=== PATIENT | male | born 1955 | race Caucasian/White ===

== ENCOUNTER 2016-10-18 10:48 | Emergency (ER) | payer MEDICARE ==
[2016-10-18 11:30] VITALS: BP 184/93
--- NOTE | 2016-10-18 11:56 | UC ---
Lower Extremity/Ankle HPI - HPI Summary HPI Summary: Noticed pain and swelling on L lateral foot today while changing socks. Has open area to L sole of foot, also redness on top of foot. Has hx of DM II ("I'm not diabetic anymore now that I'm not taking a statin"), peripheral neuropathy, and PAD. Has not seen PCP in over a year because he felt he was being given too much/harmful medicine. Denies fever. - History of Current Complaint Chief Complaint: UCSkin Stated Complaint: FOOT INJURY Time Seen by Provider: 10/18/16 11:29 Hx Obtained From: Patient Onset/Duration: Gradual Onset Severity Currently: Moderate Aggravating Factor(s): Standing, Ambulation Able to Bear Weight: Yes - Allergies/Home Medications Allergies/Adverse Reactions: Allergies Allergy/AdvReac Type Severity Reaction Status Date / Time Atorvastatin [From Lipitor] Allergy Unknown Verified 06/09/15 11:37 Reaction Details Statins Allergy "PERIPHERAL Verified 06/09/15 11:37 ARTERY DISEASE" Home Medications: Home Medications Alpha-Lipoic Acid (Thioctic AC [Alpha Lipoic Acid] 600 mg PO DAILY 10/18/16 [ History Confirmed 10/18/16] Misc Natural Products [Colon Cleanse] 1 cap PO DAILY 10/18/16 [History Confirmed 10/18/16] Vitamin B Complex CAP* [B Complex CAP*] 1 cap PO DAILY 10/18/16 [History Confirmed 10/18/16] PMH/Surg Hx/FS Hx/Imm Hx Endocrine History Of: Reports: Diabetes Denies: Thyroid Disease Cardiovascular History Of: Reports: Cardiac Disorders - periperal artery disease , enlarged heart, Hypertension, Atrial Fibrillation Respiratory History Of: Denies: COPD, Asthma GI/ History Of: Comment Only: Ulcer - presents with foot ulcer today - Surgical History Surgical History: Yes Surgery Procedure, Year, and Place: back surgery - Family History Known Family History: Positive: Hypertension - Social History Occupation: Retired Alcohol Use: None Substance Use Type: None Smoking Status (MU): Never Smoked Tobacco Review of Systems Constitutional: Negative Skin: Other - redness, ulcer to L foot Eyes: Negative ENT: Negative Respiratory: Negative Cardiovascular: Negative Gastrointestinal: Negative Genitourinary: Negative Motor: Negative Neurovascular: Negative Musculoskeletal: Negative Neurological: Negative Psychological: Negative All Other Systems Reviewed And Are Negative: Yes Physical Exam Triage Information Reviewed: Yes Appearance: Well-Appearing, Well-Nourished Vital Signs: Initial Vital Signs Temp 98.8 F 10/18/16 11:18 Pulse 63 10/18/16 11:18 Resp 18 10/18/16 11:18 BP 184/93 10/18/16 11:18 Pulse Ox 98 10/18/16 11:18 Vital Signs Reviewed: Yes Eye Exam: Normal Eyes: Positive: Conjunctiva Clear ENT Exam: Normal ENT: Positive: Normal ENT inspection, Hearing grossly normal, Pharynx normal, TMs normal Dental Exam: Normal Neck exam: Normal Neck: Positive: Supple, Nontender, No Lymphadenopathy Respiratory Exam: Normal Respiratory: Positive: Chest non-tender, Lungs clear, Normal breath sounds, No respiratory distress, No accessory muscle use Cardiovascular Exam: Normal Cardiovascular: Positive: RRR, No Murmur Musculoskeletal Exam: Normal Musculoskeletal: Positive: Strength Intact, ROM Intact Neurological Exam: Normal Neurological: Positive: Alert Psychological Exam: Normal Skin Exam: Other - 13cm x 6cm erythema L foot, 1cm round 0.5cm deep ulcer on L lateral sole of foot Lower Extremity Course/Dx - Differential Dx/Diagnosis Provider Diagnoses: L foot cellulitis. L foot ulcer. peripheral neuropathy Discharge - Discharge Plan Condition: Stable Disposition: HOME Prescriptions: DOXYcycline CAP(*) [DOXYcycline 100MG CAP(*)] 100 mg PO BID #20 cap Patient Education Materials: Diabetic Foot Ulcers (ED), Cellulitis (ED) Referrals: Julita Fam MD [Medical Doctor] - 2 Days Additional Instructions: Elevate the foot above the level of the heart as much as possible in the next 48 hours. Do warm soaks 4 times per day with epsom salts or soapy water. Please call Marla to make an appointment with any of the providers by Sunday, if possible. It will also be important for you to be evaluated at the wound clinic at [facility]. Please call them today: [phone]
== END 2016-10-18 12:01 | disposition home or self-care (01) ==
LOC: UCEAST 10:48
DX: L03.116 Cellulitis of left lower limb (principal); E11.621 Type 2 diabetes mellitus with foot ulcer; L97.429 Non-pressure chronic ulcer of left heel and midfoot with unspecified severity; E11.42 Type 2 diabetes mellitus with diabetic polyneuropathy; I10 Essential (primary) hypertension; I48.91 Unspecified atrial fibrillation
CPT/HCPCS: 99212; G0463

== ENCOUNTER 2017-12-21 13:44 | Inpatient (IN) | payer MEDICARE ==
[2017-12-21 14:23] LABS: ABS Basophils 0 10^3/ul (0-0.2); ABS Eosinophils 0.1 10^3/ul (0-0.6); ABS Lymphocytes 2.8 10^3/ul (1.0-4.8); ABS Monocytes 0.9 10^3/ul (0-0.8); ABS Neutrophils 3.6 10^3/ul (1.5-7.7); ABS Nucleated RBC 0 10^3/ul; Eosinophil % 1.5 % (0-6); Hematocrit 40 % (42-52); Hemoglobin 13.2 g/dl (14.0-18.0); Lymphocyte % 37.5 % (25-47); Mean Corpuscular HGB Conc 33 g/dl (31-36); Mean Corpuscular Hemoglobin 28 pg (27-31); Mean Corpuscular Volume 86 fL (80-94); Mean Platelet Volume 10.1 um3 (7.4-10.4); Nucleated Red Blood Cells % 0.1; Platelet Count 189 10^3/ul (150-450); Red Blood Count 4.67 10^6/ul (4.00-5.40); Red Cell Distribution Width 14 % (10.5-15); White Blood Count 7.4 10^3/ul (3.5-10.8)
[2017-12-21 14:37] LABS: EGFR Non-African American 102.7 (>60)
[2017-12-21] MEDS ORDERED: Metoprolol Tartrate TAB* 25 MG PO ONE (14:57)
[2017-12-21] MEDS ORDERED: Aspirin 81 mg CHEW TAB* 81 MG TAB.CHEW PO ONE (14:57)
[2017-12-21] MEDS ORDERED: Ondansetron ODT TAB* 4 MG PO ONE (14:58)
[2017-12-21] MEDS ORDERED: Nitroglycerin 2% OINT* 1 GM PAK TOPICAL ONE (14:58)
[2017-12-21] MEDS ORDERED: Furosemide IV* 10 MG/ML VIAL (40 MG) IV ONE (15:02)
--- NOTE | 2017-12-21 15:12 | RAD ---
HISTORY: SOB COMPARISONS: February 03, 2014 VIEWS: 1: frontal portable view of the chest at 2:50 PM FINDINGS: LINES AND TUBES: None. CARDIOMEDIASTINAL SILHOUETTE: The cardiomediastinal silhouette is normal for portable technique. PLEURA: There is a small right pleural effusion. LUNG PARENCHYMA: There is confluent alveolar opacification of the right lung base. ABDOMEN: The upper abdomen is clear. There is no subphrenic gas. BONES AND SOFT TISSUES: No bone or soft tissue abnormalities are noted. IMPRESSION: RIGHT LOWER LUNG CONSOLIDATION WITH SMALL RIGHT PLEURAL EFFUSION. RECOMMEND FOLLOW-UP UNTIL RESOLUTION TO EXCLUDE UNDERLYING PULMONARY PARENCHYMAL PATHOLOGY.
[2017-12-21] MEDS ORDERED: nitroGLYCERIN DRIP* 25,000 MCG/250 ML BTL IV ONE (15:44)
[2017-12-21] MEDS: Heparin DRIP 25,000 UNITS(*) 25,000 UNITS/500 ML BAG IV SCH (15:57)
[2017-12-21] MEDS ORDERED: Heparin VIAL(*) 5000 UNITS/ML VIAL (FIVE THOUSAND) IV SCH (16:00)
[2017-12-21] MEDS ORDERED: Acetaminophen TAB* 325 MG PO PRN (16:04)
[2017-12-21] MEDS ORDERED: PROCHLORPERAZINE INJ 5 MG/ML 2 ML VIAL IV PRN (16:04)
[2017-12-21 18:21] LABS: INR 1.37 (0.77-1.02)
[2017-12-21] MEDS: cefTRIAXone(*) 1 GM in NS 0.9% 50 ML* 50 ML IVPB SCH (19:00)
[2017-12-21] MEDS: DOXYcycline IV* 100 MG in NS 0.9% 250 ML* 250 ML IVPB SCH (19:27)
--- NOTE | 2017-12-21 20:43 | CONS ---
CC: Dr. Chaudhry, hospitalist service; Dr. Williamson CARDIOLOGY CONSULT: DATE OF CONSULT: 12/21/17 HISTORY OF PRESENT ILLNESS: I was asked by hospitalist service ER physician to see this 62-year-old patient who has no primary care physician and noncompliant , presented to the emergency room for progressive symptoms of shortness of breath for a few weeks and months. Apparently, the patient went to the [facility], was told to come to our emergency room. The patient has history of diabetes; history of smoking, although he quit; history of systemic arterial hypertension, not on medications; history of chronic AFib and when presented, he was found to be on physical exam, x-ray, BNP in congestive heart failure. He gives no symptoms of chest pain, although in the past he said there is some pressure in his chest. He was found to have BNP close to 2000, troponin 4. He is in AFib, which is not new and no definite ST elevation by his EKG. He has been receiving in the emergency room aspirin, Lasix 40 mg IV which I increased to 60 mg 1 dose for now and Lopressor 25 mg 1 dose, heparin drip as per protocol and nitro drip as his blood pressure was significantly elevated in the emergency room at 170/105. He gives no active chest pain at the moment. No fever. No chills. No skin rash. No tremors. No hematochezia. No nausea. No vomiting. He said he has been having progressive shortness of breath. He gained weight 20 pounds in a year, swelling of the lower extremities. He gives no history of myocardial infarction. He is not on any medications as an outpatient except baby aspirin. He is on disability because of chronic back pain issues and surgeries. He said he used to smoke, He quit many years ago. In the emergency room, he is awake, alert, and oriented. He has no symptoms of chest pain. He is mildly tachypneic, sitting up at 45 degrees. PAST MEDICAL HISTORY: As outlined above. PAST SURGICAL HISTORY: Multiple surgeries according to the patient to his back. ALLERGIES: He said he had allergies to STATINS as giving him significantly elevated triglycerides according to the patient. FAMILY HISTORY: No family history of premature coronary artery disease. SOCIAL HISTORY: He is on disability. He used to smoke. He gives no history of drinking. No history of illicit drug use. PHYSICAL EXAM: He is awake, alert, and oriented. He had no chest pain. He had some shortness of breath, tachypneic. Vitals: Blood pressure is 170/100. He is afebrile. Heart rate 110. He is in AFib which is not new. Head: Normocephalic/atraumatic head. JVP is elevated at 45 degrees, 5 cm. Neck is supple. No carotid bruits. Chest: Diminished air entry and rales up to the mid lungs bilaterally. Heart: Tachycardic, irregularly irregular, S1, S2. Soft S3 appreciated. Abdomen: Soft, lax. No guarding. No rigidity. No organomegaly. Extremities: +3 pitting edema up to the knees. GRINDER OPERATOR TOOL: No focal deficits. Skin exam is normal. Psych: Normal affect and mood. DIAGNOSTIC STUDIES/LAB DATA: Chest x-ray was reported to have right lower lung consolidation, small right pleural effusion. His labs showed white blood cells 7.4, hemoglobin 13.2, hematocrit 40, and platelets 189,000. Chemistry: Sodium 141, potassium 4.2, BUN 8, creatinine 0.77, sugar 126. AST 49, ALT 33. Troponin 4.87. BNP 1758. Albumin and globulin are normal. His EKG showed him to be in atrial fibrillation, heart rate about 106, nonspecific ST-T changes, no definite ST elevations appreciated, nonspecific T wave abnormality. IMPRESSION: The patient is a 62-year-old, noncompliant, does not follow up with primary care or specialist according to the patient who presented with: 1. Progressive symptoms of shortness of breath with swelling of the lower extremities, all consistent with congestive heart failure. 2. Significantly elevated blood pressure with known history of systemic arterial hypertension, not on medications. 3. History of tobacco consumption. 4. Hyperlipidemia. 5. History of diabetes. 6. Chronic atrial fibrillation, not on medications as an outpatient. PLAN: The patient had initially limited echo in the emergency room that showed the overall left ventricular systolic function with an EF globally about 20% to 25%. In some of the views, there is some regional wall motion, probably minor variation, probably anterior apical septal wall hypokinesis of unknown duration. My belief is his congestive heart failure is acute on chronic. He is noncompliant. That could be multifactorial in nature including his history of atrial fibrillation with tachycardia-induced cardiomyopathy, hypertensive heart disease and definitely coronary artery disease or ischemic heart disease cannot be excluded given his risk factors and comorbidities. A full echocardiogram is in progress at the present time. From the limited echo, probably there is mild to moderate tricuspid insufficiency, mild mitral insufficiency, probably trivial pericardial effusion and no significant aortic insufficiency or stenosis appreciated. At the present time, treatment will be for congestive heart failure. I agree with the Lasix, IV heparin, low-dose KRISTEL inhibitor as tolerated, and also Aldactone and I agree with statin needs to be discussed with the patient given that he does not want to take them and he indicated that he had allergies in the form of increasing triglycerides. This needs to be discussed further. Daily weights, I's and O's, IV nitro that will be of help for his hypertensive heart disease as well as for his acute congestive heart failure. Once the patient is more stabilized from his acute systolic congestive heart failure, cardiac catheterization to evaluate his coronary anatomy will be discussed. Definitely, if he becomes more hemodynamically unstable or serial EKGs starting to show significant ST elevations or serial troponins showing significantly elevated numbers, then cardiac catheterization might be done sooner rather than later. Any further recommendations will be pending his clinical outcome and it is so important for this patient to be compliant with his future medical followups as well as with his cardiac medications. Also low-dose KRISTEL inhibitors, low-dose beta-blockers and monitoring him very closely for hemodynamics and vital signs as well. This was all discussed with the patient at length. I have discussed this as well with hospitalist service, Dr. Chaudhry, more than half of at least 65 plus minutes was [id number] in education and counseling mode explaining all of the above, answering his concerns and questions and making further recommendations accordingly. [id number]/[facility] #: [id number] [facility] PARTNERSRoque
[2017-12-21] MEDS ORDERED: Lisinopril TAB* 5 MG PO SCH (21:00)
--- NOTE | 2017-12-21 21:00 | HP ---
CC: Dr. Williamson HISTORY AND PHYSICAL: DATE OF ADMISSION: 12/21/17 TIME OF EVALUATION: 3:30 p.m. CONSULTING PRESIDENT + PUBLISHER: Dr. Williamson. CHIEF COMPLAINT: Shortness of breath. HISTORY OF PRESENT ILLNESS: Mr. Persaud is a 62-year-old male with a past medical history of hy pertension, hyperlipidemia, atrial fibrillation, noncompliance, who last saw a physician 2 years ago. He states that since July he has had progressive dyspnea initially with exertion but progressiv e to the point now he is dyspneic at rest. He developed orthopnea, PND, has gained 20 pounds over past couple of months, and describes severe bilateral lower extremity edema for the past couple of weeks. He states that in October he had cold "that I cannot shake out." He states that he has been taking cough drops frequently. He denies chest pain, but has had palpitations on and off for 6 months. He states that he was diagno sed with atrial fibrillation a couple of years ago and that he had irregular heart beat, but by the e he came to the emergency room, it had already resolved. He has had on and off brief episodes sin ce then, but has never been on anticoagulation. He states that for the past 6 months, the episodes h ave been more frequent and he thinks that at least for the past couple of weeks, he has been in atria l fibrillation nonstop. He denies fever, chills, nausea, vomiting, urinary or bowel complaints. PAST MEDICAL HISTORY: 1. Hypertension. 2. Hyperlipidemia. 3. Atrial fibrillation. 4. Noncompliance. MEDICATIONS: Aspirin 81 mg p.o. daily. ALLERGIES: With ATORVASTATIN, the patient experienced muscle aches. FAMILY HISTORY: Father had a history of heart disease. Brother of unknown type of cancer. His mother is 100 and still alive. She lives in a prison in [place]. SOCIAL HISTORY: He states that he smoked a pack and a half a day and quit 9 years ago. No history o f alcohol or drug use. The patient has no surrogate decision maker at this time. REVIEW OF SYSTEMS: A 14-point review of systems was performed and all the pertinent negative and pos itive findings are in the HPI. PHYSICAL EXAMINATION GENERAL: The patient is a pleasant gentleman, sitting up in the ED stretcher, in no acute distress. VITAL SIGNS: Temperature 98.1, heart rate 120, respiratory rate 27, oxygen saturation 96% on 2 L celena al cannula, blood pressure 170/99. HEENT: Pupils are equal. Moist mucous membranes. There is JVD 5 cm with the patient sitting at alda ost 90 degrees. CHEST: Breath sounds present bilaterally with bilateral crackles. CVS: Normal S1, S2. Regular rate and rhythm. ABDOMEN: Obese, soft. Bowel sounds are present. EXTREMITIES: There is 3+ pitting lower extremity edema. NEURO: He is alert and oriented x3. Able to move all 4 extremities. LABORATORY AND IMAGING DATA: The patient had a CBC that showed WBC of 7.4, hemoglobin of 13.2, pepe tocrit of 40, platelets of 189,000 with 48% neutrophils. Chemistry showed sodium of 141, potassium 4. 2, chloride of 106, bicarb of 25, BUN 8, creatinine of 0.77, glucose of 106. Lactic acid of 1.8. Ca lcium 9.1. LFTs showed a total bilirubin of 1.4, AST of 49, ALT of 33, alk phos of 171. BNP is 170 0. First troponin was 4.8. Chest x-ray showed a right lower lung consolidation with small right pleural effusion. EKG done on 12/21/17 at 1425 showed atrial fibrillation with heart rate of 106 beats per minute with signs of LVH, prolonged QT. Those findings are new when compared to his prior EKG from May 2015 except for the prolonged QT interval that was already present at that time. ASSESSMENT AND PLAN: Mr. Persaud is a 62-year-old male with a past medical history of hypertens ion, hyperlipidemia, atrial fibrillation, prior tobacco abuse, noncompliance [facility] of progressive dyspnea, at first on exertion, now at rest; orthopnea; PND; we ight gain; lower extremity edema, representation compatible with acute congestive heart failure exace rbation. 1. Acute systolic congestive heart failure exacerbation. The patient's echo preliminary report sugg ests an ejection fraction of 25%. The patient's heart disease is decompensated at this time and he will be admitted to the intensive ca re unit for further stabilization. For now, he will be diuresed with furosemide. We are going to use a nitro drip to control his blood pressure. Monitor I's and O's and daily weights. We will start low dose beta-joey, low dose KRISTEL inhibitor, and eventually will add Aldactone to his regimen. 2. Non-ST elevation myocardial infarction. The patient does have risk factors for coronary artery disease considering his prior history of tobac co abuse, hypertension, hyperlipidemia. He has no complaints of chest pain. There are no ST elevati ons on his EKG and he is chest pain free. First troponin was 4.8 and we are going to trend until peak . He will be continued on aspirin. He will be on a heparin drip and also low dose beta-joey. We ar e going to check a lipid profile before starting a statin as the patient had muscle aches with it in the past. 3. Atrial fibrillation with rapid ventricular rate. Likely uncontrolled now due to his congestive heart failure and probably a snowball effect with the c ongestive heart failure feeding the atrial fibrillation and the atrial fibrillation feeding the conge stive heart failure. For now, he is going to be diuresed and we are going to give him metoprolol and monitor his heart rate. He is already on anticoagulation with heparin and we may need to add furthe r negative annual troponins depending on his response. 4. Sepsis. The patient does meet SIRS criteria with tachycardia and tachypnea and he appears to hav e a right lower lobe infiltrate in the setting of a recent upper respiratory infection in October. Altho ugh I believe that his tachycardia and tachypnea are not related to infection and are in fact related to his heart disease. The patient will be started on ceftriaxone and doxycycline. IV hydration is contraindicated at this time as the patient is already severely fluid overloaded. His lactic acid was 1.8, and as I stated be fore, I do not believe his tachypnea and tachycardia are secondary to pneumonia, but are secondary to his heart disease. We will check Legionella and pneumococcal antigens. 5. Community-acquired pneumonia. As above. 6. Hyperglycemia. We will check hemoglobin A1c. 7. Transaminitis. Likely secondary to liver congestion in the setting of decompensated congestive heart failure. 8. DVT prophylaxis. The patient has a score of 4 on the DVT Prophylaxis Risk Assessment Guide and h e is on a heparin drip. 9. Code status is full. TIME SPENT: Approximately 65 minutes of critical care time was spent to complete the admission. [id number]/[facility] #: [id number]
[2017-12-21] MEDS: Metoprolol Tartrate TAB* 25 MG PO SCH (21:19)
[2017-12-21] MEDS: Heparin VIAL(*) 5000 UNITS/ML VIAL (FIVE THOUSAND) ONE (22:39)
[2017-12-22 04:25] LABS: ABS Basophils 0 10^3/ul (0-0.2); ABS Eosinophils 0.1 10^3/ul (0-0.6); ABS Lymphocytes 3.2 10^3/ul (1.0-4.8); ABS Monocytes 0.9 10^3/ul (0-0.8); ABS Neutrophils 4.9 10^3/ul (1.5-7.7); ABS Nucleated RBC 0 10^3/ul; Eosinophil % 1.3 % (0-6); Hematocrit 38 % (42-52); Hemoglobin 12.6 g/dl (14.0-18.0); Lymphocyte % 34.9 % (25-47); Mean Corpuscular HGB Conc 33 g/dl (31-36); Mean Corpuscular Hemoglobin 28 pg (27-31); Mean Corpuscular Volume 86 fL (80-94); Mean Platelet Volume 9.8 um3 (7.4-10.4); Nucleated Red Blood Cells % 0.1; Platelet Count 175 10^3/ul (150-450); Red Blood Count 4.46 10^6/ul (4.00-5.40); Red Cell Distribution Width 14 % (10.5-15); White Blood Count 9.2 10^3/ul (3.5-10.8)
[2017-12-22 04:41] LABS: EGFR Non-African American 95.5 (>60)
[2017-12-22] MEDS: DOXYcycline IV* 100 MG in NS 0.9% 250 ML* 250 ML IVPB SCH ×2 (05:47→17:57)
[2017-12-22] MEDS: Metoprolol Tartrate TAB* 25 MG PO SCH ×2 (09:12→20:53)
[2017-12-22] MEDS: Aspirin EC TAB* 81 MG TAB.EC PO SCH (09:12)
[2017-12-22] MEDS: Furosemide IV* 10 MG/ML VIAL (40 MG) IV SLOW PU SCH (09:12)
--- NOTE | 2017-12-22 10:16 | PN ---
Subjective Date of Service: 12/22/17 - CC: leg swelling and orthopnea Interval History: The patient states his leg swelling, abdominal distension and breathing have improved c/w admission. The patient states he will now follow up with physicians. Medications Active Medications: Acetaminophen (Tylenol Tab*) 650 mg PO Q6H PRN PRN Reason: pain/fever Aspirin (Aspirin Ec Tab*) 81 mg PO DAILY [facility] Last Admin: 12/22/17 09:12 Dose: 81 mg Furosemide (Lasix Iv*) 40 mg IV SLOW PU DAILY [facility] Last Admin: 12/22/17 09:12 Dose: 40 mg Heparin Sodium (Porcine) (Heparin Vial(*)) 4,000 units IV ED ONCE [facility] Last Admin: 12/21/17 15:55 Dose: 4,000 units Heparin Sodium/Dextrose (Heparin Drip 25,000 Units(*)) 25,000 units in 500 mls @ 0 mls/hr IV PER RATE [facility]; Protocol Last Admin: 12/21/17 15:57 Dose: 20 mls/hr Nitroglycerin/Dextrose (Nitroglycerin Drip*) 25,000 mcg in 250 mls @ 6 mls/hr IV ED ONCE ONE Stop: 12/23/17 09:23 Last Admin: 12/21/17 16:05 Dose: 6 mls/hr Doxycycline Hyclate 100 mg/ (Sodium Chloride) 250 mls @ 250 mls/hr IVPB Q12H [facility] Last Admin: 12/22/17 05:47 Dose: 250 mls/hr Ceftriaxone Sodium 1 gm/ (Sodium Chloride) 50 mls @ 200 mls/hr IVPB Q24H [facility] Last Admin: 12/21/17 19:00 Dose: 200 mls/hr Lisinopril (Prinivil Tab*) 2.5 mg PO BEDTIME [facility] Last Admin: 12/21/17 21:18 Dose: 2.5 mg Metoprolol Tartrate (Lopressor Tab*) 12.5 mg PO Q12HR [facility] Last Admin: 12/22/17 09:12 Dose: 12.5 mg Prochlorperazine Edisylate (Compazine Inj*) 5 mg IV Q6H PRN PRN Reason: NAUSEA/VOMITING Objective Vital Signs: Temp Pulse Resp BP Pulse Ox 98.8 F 87 27 144/86 94 12/22/17 07:00 12/22/17 06:00 07/07/18 06:00 12/22/17 06:00 12/22/17 06:00 Intake and Output Last 24 Hours 12/20/17 12/21/17 12/22/17 12/23/17 04:59 04:59 04:59 04:59 Intake Total 1211.6 420.4 Output Total 1950 675 Balance -738.4 -254.6 Weight 220 lb 7.396 oz Intake: IV Fluids 24 61 NS (0.9%) 24 61 IVPB 250 17 NS (0.9%) 250 17 Medicated IV 127.6 222.4 CC - Nitroglycerine/ 29.6 45.4 Tridil Heparin 98 177 Oral 810 120 Output: Urine 1950 675 Oxygen Devices in Use Now: Nasal Cannula Appearance: seated in Gerichair, 50 degrees, comfortable sitting, tachypnea with talking. Eyes: No Scleral Icterus, PERRLA Ears/Nose/Mouth/Throat: Clear Oropharnyx Neck: No Thyroid Enlargement, Masses Respiratory: Symmetrical Chest Expansion and Respiratory Effort - diminished bs bases bilatlerlly Cardiovascular: NL Sounds; No Murmurs; No JVD - irregular. Abdominal: - - distended, non tender, normal bowel sounds, soft. Lymphatic: No Cervical Adenopathy Extremities: No Clubbing, Cyanosis - mild to moderate edema lower extremities to knees. Neurological: Alert and Oriented x 3 Lines/Tubes/Other Access: Clean, Dry and Intact Peripheral IV Nutrition: Taking PO's Laboratory Results: 12/22/17 04:12 12/22/17 04:12 INR (Anticoag Therapy) 1.37 (0.77-1.02) H 12/21/17 18:05 APTT 51.5 seconds (26.0-36.3) H 12/22/17 04:12 Total Bilirubin 1.40 mg/dL (0.2-1.0) H 12/21/17 14:07 AST 49 U/L (13-39) H 12/21/17 14:07 ALT 33 U/L (7-52) 12/21/17 14:07 Alkaline Phosphatase 171 U/L (34-104) H 12/21/17 14:07 B-Natriuretic Peptide 1758 pg/mL (-100) H 12/21/17 14:08 Total Protein 6.1 g/dL (6.4-8.9) L 12/21/17 14:07 Albumin 3.6 g/dL (3.2-5.2) 12/21/17 14:07 Globulin 2.5 g/dL (2-4) 12/21/17 14:07 Albumin/Globulin Ratio 1.4 (1-3) 12/21/17 14:07 Triglycerides 58 mg/dL 12/22/17 04:12 Cholesterol 89 mg/dL 12/22/17 04:12 LDL Cholesterol 54 mg/dL 12/22/17 04:12 HDL Cholesterol 23.7 mg/dL 12/22/17 04:12 12/21/17 12/21/17 12/21/17 14:07 18:05 21:53 Troponin I 4.87 H* 4.94 H* 4.77 H* 12/22/17 04:12 Troponin I 3.98 H* Diagnostic Imaging: ECHO 12/21/17: LVEF 20-25%, RV moderate hypokinesis, mild to moderate MR and TR, PApr 54 mmHg. CXR 12/21/17: RLL consolidation and effusion. EKG Data: Afib, rate approx. 100 bpm Assessment/Plan 62 yo admitted with months of progressive orthopnea, SMITH, LE edema found in afib of uncertain duration, severe CM, elevated PApressure and troponins elevated, but fairly even. CHF and volume overload: Continue with lasix IV daily. I recommend adding aldactone 25 mg daily. CM: Continue ACEI and Beta joey. I would increase diuresis now, but advance ACEI and BB as BP allows, doses very low now. longterm need to evaluate for improvement of EF, if none VT risk will need to be addressed. Troponin elevation: Could represent CAD, recent but not acute NV or be due to CHF/AFib. Agree needs cath, but too volume overloaded now. AFIB: Continue heparin gtt/anticoagulation that can be stopped for cath. Continue metoprolol for rate control. Atria are very large making successful and durable cardioversion less likely , no cardioversion planned immanently. longterm a trial of GAIL guided CV with aggressive antiarrhythmic might still be worth a try as AV sequential rhythm could help with his CM/CHF and/or referral to EP for consultation (?ablation candidate).
[2017-12-22] MEDS ORDERED: Furosemide IV* 10 MG/ML 2 ML VIAL (20 MG) IV SLOW PU ONE (13:29)
[2017-12-22] MEDS ORDERED: Potassium Chlor TAB* 20 MEQ TAB.ER PO ONE ×2 (13:29→18:13)
--- NOTE | 2017-12-22 14:02 | PN ---
Subjective Date of Service: 12/22/17 Interval History: HOSPITALIST PROGRESS NOTE Patient seen and examined at bedside. Care reviewed and d/w Deirdre Hernandez RN. He feels better today. States his breathing is easier, but feels his edema is unchanged. Denies CP or palpitations, although he's in Afib. States in the past he was aware he was in Afib, but not anymore. Family History: Unchanged from Admission Social History: Unchanged from Admission Past Medical History: Unchanged from Admission Objective Active Medications: Acetaminophen (Tylenol Tab*) 650 mg PO Q6H PRN PRN Reason: pain/fever Aspirin (Aspirin Ec Tab*) 81 mg PO DAILY [facility] Last Admin: 12/22/17 09:12 Dose: 81 mg Furosemide (Lasix Iv*) 40 mg IV SLOW PU DAILY [facility] Last Admin: 12/22/17 09:12 Dose: 40 mg Heparin Sodium (Porcine) (Heparin Vial(*)) 4,000 units IV ED ONCE [facility] Last Admin: 12/21/17 15:55 Dose: 4,000 units Heparin Sodium/Dextrose (Heparin Drip 25,000 Units(*)) 25,000 units in 500 mls @ 0 mls/hr IV PER RATE [facility]; Protocol Last Admin: 12/21/17 15:57 Dose: 20 mls/hr Doxycycline Hyclate 100 mg/ (Sodium Chloride) 250 mls @ 250 mls/hr IVPB Q12H [facility] Last Admin: 12/22/17 05:47 Dose: 250 mls/hr Ceftriaxone Sodium 1 gm/ (Sodium Chloride) 50 mls @ 200 mls/hr IVPB Q24H [facility] Last Admin: 12/21/17 19:00 Dose: 200 mls/hr Lisinopril (Prinivil Tab*) 2.5 mg PO BEDTIME [facility] Last Admin: 12/21/17 21:18 Dose: 2.5 mg Metoprolol Tartrate (Lopressor Tab*) 12.5 mg PO Q12HR [facility] Last Admin: 12/22/17 09:12 Dose: 12.5 mg Prochlorperazine Edisylate (Compazine Inj*) 5 mg IV Q6H PRN PRN Reason: NAUSEA/VOMITING Spironolactone (Aldactone Tab*) 25 mg PO DAILY@1700 [facility] Vital Signs - 8 hr 12/22/17 12/22/1718 06:00 07:00 07:01 Temperature 98.8 F Pulse Rate 87 89 102 Respiratory 27 21 22 Rate Blood Pressure 144/86 135/61 (mmHg) O2 Sat by Pulse 94 91 Oximetry 12/22/17 12/22/17 12/22/17 08:00 09:00 09:01 Temperature Pulse Rate 104 96 105 Respiratory 20 23 21 Rate Blood Pressure 113/69 112/80 (mmHg) O2 Sat by Pulse 92 92 92 Oximetry 12/22/17 12/22/17 12/22/17 10:00 10:08 11:00 Temperature Pulse Rate 110 99 92 Respiratory 31 27 32 Rate Blood Pressure 111/65 (mmHg) O2 Sat by Pulse 89 92 Oximetry 12/22/17 12/22/17 12/22/17 11:01 12:00 13:00 Temperature Pulse Rate 86 87 Respiratory 29 26 22 Rate Blood Pressure 123/73 119/79 134/79 (mmHg) O2 Sat by Pulse 91 92 Oximetry Oxygen Devices in Use Now: None Appearance: Pleasant gentleman lying in recliner in NAD. Eyes: No Scleral Icterus Ears/Nose/Mouth/Throat: Mucous Membranes Moist Neck: Trachea Midline Respiratory: Symmetrical Chest Expansion and Respiratory Effort, - - BS+ bilaterally with bibasilar crackles Cardiovascular: - - Normal S1 and S2 Abdominal: NL Sounds; No Tenderness; No Distention Extremities: - - Bilateral LE pitting edema 3+ Neurological: Alert and Oriented x 3, NL Muscle Strength and Tone Result Diagrams: 12/22/17 04:12 12/22/17 04:12 Assess/Plan/Problems-Billing Assessment: Mr. Persaud is a 62yo M with PMH of Afib, HTN, HLD, DM, non compliance, who presented to ED with c/o months of progressive dyspnea, found to have acute systolic CHF exacerbation. - Patient Problems (1) Acute systolic CHF (congestive heart failure) Comment: - Echo showed EF 20-25%. - Continue diuresis with Furosemide and add Aldactone. - Weight down from 220 to 213lbs. - Continue metoprolol and increase Lisinopril to 5 mg/daily. - D/c NTG drip. (2) Atrial fibrillation Comment: - Rate is better controlled now. - Atria very large, so cardioversion likely won't be successful. - Plan for now is anticoagulation with heparin drip and rate control with Metoprolol. - [id number] is 2-3 (HF, HT, +/- DM) - will need anticoagulation on discharge. (3) Elevated troponin Comment: - Maybe secondary to CAD/NSTEMI, CHF/Afib. - Continue Aspirin, Heparin, Metoprolol. - Patient states he had severe side effects with atorvastatin in the past, including DM and would prefer not to take statins. - LDL is 54, A1c is pending. (4) Pneumonia Comment: - Patient had respiratory infection in October that he "could not get rid off". - CxR shows RLL consolidation suggestive of pneumonia. - Continue Ceftriaxone and Doxycycline. - Legionella and pneumococcal Ag are negative. (5) DVT prophylaxis Comment: - Heparin drip. (6) Full code status Status and Disposition: Inpatient.
[2017-12-22] MEDS: Heparin DRIP 25,000 UNITS(*) 25,000 UNITS/500 ML BAG IV SCH (17:01)
[2017-12-22] MEDS: cefTRIAXone(*) 1 GM in NS 0.9% 50 ML* 50 ML IVPB SCH (17:01)
[2017-12-22] MEDS: Spironolactone TAB* 25 MG PO SCH (17:01)
[2017-12-22] MEDS ORDERED: Heparin VIAL(*) 5000 UNITS/ML VIAL (FIVE THOUSAND) ONE ×2 (18:45→23:34)
[2017-12-22] MEDS: Heparin VIAL(*) 5000 UNITS/ML VIAL (FIVE THOUSAND) ONE (18:48)
[2017-12-22] MEDS: Lisinopril TAB* 5 MG PO SCH (20:52)
[2017-12-23] MEDS: DOXYcycline IV* 100 MG in NS 0.9% 250 ML* 250 ML IVPB SCH ×2 (05:45→17:20)
[2017-12-23 05:48] LABS: ABS Basophils 0 10^3/ul (0-0.2); ABS Eosinophils 0.3 10^3/ul (0-0.6); ABS Lymphocytes 3.2 10^3/ul (1.0-4.8); ABS Monocytes 0.9 10^3/ul (0-0.8); ABS Neutrophils 3.9 10^3/ul (1.5-7.7); ABS Nucleated RBC 0 10^3/ul; Eosinophil % 3.1 % (0-6); Hematocrit 39 % (42-52); Lymphocyte % 38.6 % (25-47); Mean Corpuscular HGB Conc 33 g/dl (31-36); Mean Corpuscular Hemoglobin 28 pg (27-31); Mean Corpuscular Volume 86 fL (80-94); Mean Platelet Volume 9.5 um3 (7.4-10.4); Nucleated Red Blood Cells % 0.1; Platelet Count 176 10^3/ul (150-450); Red Cell Distribution Width 14 % (10.5-15); White Blood Count 8.3 10^3/ul (3.5-10.8)
[2017-12-23 06:02] LABS: EGFR Non-African American 99.7 (>60)
[2017-12-23] MEDS: Aspirin EC TAB* 81 MG TAB.EC PO SCH (08:13)
[2017-12-23] MEDS: Furosemide IV* 10 MG/ML VIAL (40 MG) IV SLOW PU SCH (08:13)
[2017-12-23] MEDS: Metoprolol Tartrate TAB* 25 MG PO SCH ×2 (08:13→20:47)
[2017-12-23] MEDS: Potassium Chlor TAB* 20 MEQ TAB.ER PO SCH (09:04)
--- NOTE | 2017-12-23 12:41 | PN ---
Subjective Date of Service: 12/23/17 Interval History: HOSPITALIST PROGRESS NOTE Patient seen and examined at bedside. Care reviewed and d/w Marc Ruelas RN. He feels better today. Denies dyspnea, chest pain or palpitations. Weight not yet available, but diuresed >6 liters over the last 24h. Family History: Unchanged from Admission Social History: Unchanged from Admission Past Medical History: Unchanged from Admission Objective Active Medications: Acetaminophen (Tylenol Tab*) 650 mg PO Q6H PRN PRN Reason: pain/fever Aspirin (Aspirin Ec Tab*) 81 mg PO DAILY [facility] Last Admin: 12/23/17 08:13 Dose: 81 mg Furosemide (Lasix Iv*) 40 mg IV SLOW PU DAILY [facility] Last Admin: 12/23/17 08:13 Dose: 40 mg Heparin Sodium (Porcine) (Heparin Vial(*)) 4,000 units IV ED ONCE [facility] Last Admin: 12/21/17 15:55 Dose: 4,000 units Heparin Sodium/Dextrose (Heparin Drip 25,000 Units(*)) 25,000 units in 500 mls @ 0 mls/hr IV PER RATE [facility]; Protocol Last Admin: 12/22/17 17:01 Dose: 18 mls/hr Doxycycline Hyclate 100 mg/ (Sodium Chloride) 250 mls @ 250 mls/hr IVPB Q12H [facility] Last Admin: 12/23/17 05:45 Dose: 250 mls/hr Ceftriaxone Sodium 1 gm/ (Sodium Chloride) 50 mls @ 200 mls/hr IVPB Q24H [facility] Last Admin: 12/22/17 17:01 Dose: 200 mls/hr Lisinopril (Prinivil Tab*) 5 mg PO BEDTIME [facility] Last Admin: 12/22/17 20:52 Dose: 5 mg Metoprolol Tartrate (Lopressor Tab*) 12.5 mg PO Q12HR [facility] Last Admin: 12/23/17 08:13 Dose: 12.5 mg Potassium Chloride (Klor Con Er Tab*) 20 meq PO DAILY [facility] Last Admin: 12/23/17 09:04 Dose: 20 meq Prochlorperazine Edisylate (Compazine Inj*) 5 mg IV Q6H PRN PRN Reason: NAUSEA/VOMITING Spironolactone (Aldactone Tab*) 25 mg PO DAILY@1700 [facility] Last Admin: 12/22/17 17:01 Dose: 25 mg Vital Signs - 8 hr 12/23/17 12/23/17 12/23/17 05:00 05:43 06:00 Temperature Pulse Rate 85 85 Respiratory 21 22 19 Rate Blood Pressure 123/87 145/73 (mmHg) O2 Sat by Pulse 98 94 Oximetry 12/23/17 12/23/17 12/23/17 07:00 07:44 08:00 Temperature 97.9 F Pulse Rate 87 78 Respiratory 18 22 Rate Blood Pressure 107/62 123/69 (mmHg) O2 Sat by Pulse 94 97 Oximetry Oxygen Devices in Use Now: None Appearance: Pleasant gentleman lying in recliner in NAD. Eyes: No Scleral Icterus Ears/Nose/Mouth/Throat: Mucous Membranes Moist Neck: Trachea Midline, - - JVD much improved Respiratory: Symmetrical Chest Expansion and Respiratory Effort, Clear to Auscultation Cardiovascular: - - Normal S1 and S2, irregularly irregular Abdominal: NL Sounds; No Tenderness; No Distention Extremities: - - bilateral LE severe pitting edema Neurological: Alert and Oriented x 3, NL Muscle Strength and Tone Result Diagrams: 12/23/17 05:30 12/23/17 05:30 Microbiology and Other Data: Microbiology 12/22/17 08:15 Legionella Urinary Antigen - Final Urine Negative Legionella Antigen Streptococcus pneumoniae Ag Screen - Final Negative S. pneumo Antigen 12/21/17 18:55 Nasal Screen MRSA (PCR) - Final Nasal Mrsa Not Detected Assess/Plan/Problems-Billing Assessment: Mr. Persaud is a 62yo M with PMH of Afib, HTN, HLD, DM, non compliance, who presented to ED with c/o months of progressive dyspnea, found to have acute systolic CHF exacerbation. - Patient Problems (1) Acute systolic CHF (congestive heart failure) Comment: - Echo showed EF 20-25%. - Continue diuresis with Furosemide and add Aldactone. - Weight not yet available today, but 6 liters urine output last 24h. - Increase metoprolol to 25mg BID and continue Lisinopril 5 mg/daily. - Transfer to Telemetry floor. (2) Atrial fibrillation Comment: - Rate is controlled now. - Atria very large, so cardioversion likely won't be successful. - Plan for now is anticoagulation with heparin drip and rate control with Metoprolol. - [id number] is 3 (HF, HT, DM) - will need anticoagulation on discharge. (3) Elevated troponin Comment: - Maybe secondary to CAD/NSTEMI, CHF/Afib. - Continue Aspirin, Heparin, Metoprolol. - Patient states he had severe side effects with atorvastatin in the past, including DM and would prefer not to take statins. - LDL is 54, A1c is pending. - Plan for cardiac cath when CHF compensated. (4) Pneumonia Comment: - Patient had respiratory infection in October that he "could not get rid off". - CxR shows RLL consolidation suggestive of pneumonia. - Continue Ceftriaxone and Doxycycline. - Legionella and pneumococcal Ag are negative. (5) DVT prophylaxis Comment: - Heparin drip. (6) Full code status Status and Disposition: Inpatient.
[2017-12-23] MEDS: cefTRIAXone(*) 1 GM in NS 0.9% 50 ML* 50 ML IVPB SCH (16:35)
[2017-12-23] MEDS: Spironolactone TAB* 25 MG PO SCH (16:35)
[2017-12-23] MEDS: Lisinopril TAB* 5 MG PO SCH (20:47)
[2017-12-24] MEDS: DOXYcycline IV* 100 MG in NS 0.9% 250 ML* 250 ML IVPB SCH ×2 (06:01→17:32)
[2017-12-24 06:46] LABS: EGFR Non-African American 94.2 (>60)
[2017-12-24] MEDS ORDERED: Magnesium Sulfate IV* 2 GM in NS 0.9% 100 ML* 100 ML IVPB ONE (07:29)
[2017-12-24] MEDS ORDERED: NS 0.9% 100 ML* 100 ML ONE (08:13)
[2017-12-24] MEDS: Metoprolol Tartrate TAB* 25 MG PO SCH ×2 (08:22→20:42)
[2017-12-24] MEDS: Aspirin EC TAB* 81 MG TAB.EC PO SCH (08:23)
[2017-12-24] MEDS: Potassium Chlor TAB* 20 MEQ TAB.ER PO SCH (08:23)
[2017-12-24] MEDS ORDERED: Metolazone TAB* 5 MG PO ONE (08:30)
[2017-12-24] MEDS: Furosemide IV* 10 MG/ML VIAL (40 MG) IV SLOW PU SCH (09:23)
--- NOTE | 2017-12-24 10:11 | PN ---
Subjective Date of Service: 12/24/17 Interval History: HOSPITALIST PROGRESS NOTE Patient seen and examined at bedside. Care reviewed and d/w Beto Fernandez RN. He offers no new c/o at this time, but seems to be a little more dyspneic. Denies CP, palpitations, N/V. Family History: Unchanged from Admission Social History: Unchanged from Admission Past Medical History: Unchanged from Admission Objective Active Medications: Acetaminophen (Tylenol Tab*) 650 mg PO Q6H PRN PRN Reason: pain/fever Aspirin (Aspirin Ec Tab*) 81 mg PO DAILY [facility] Last Admin: 12/24/17 08:23 Dose: 81 mg Furosemide (Lasix Iv*) 40 mg IV SLOW PU DAILY [facility] Last Admin: 12/24/17 09:23 Dose: 40 mg Heparin Sodium (Porcine) (Heparin Vial(*)) 4,000 units IV ED ONCE [facility] Last Admin: 12/21/17 15:55 Dose: 4,000 units Heparin Sodium/Dextrose (Heparin Drip 25,000 Units(*)) 25,000 units in 500 mls @ 0 mls/hr IV PER RATE [facility]; Protocol Last Admin: 12/22/17 17:01 Dose: 18 mls/hr Doxycycline Hyclate 100 mg/ (Sodium Chloride) 250 mls @ 250 mls/hr IVPB Q12H [facility] Last Admin: 12/24/17 06:01 Dose: 250 mls/hr Ceftriaxone Sodium 1 gm/ (Sodium Chloride) 50 mls @ 200 mls/hr IVPB Q24H [facility] Last Admin: 12/23/17 16:35 Dose: 200 mls/hr Lisinopril (Prinivil Tab*) 5 mg PO BEDTIME [facility] Last Admin: 12/23/17 20:47 Dose: 5 mg Metoprolol Tartrate (Lopressor Tab*) 12.5 mg PO Q12HR [facility] Last Admin: 12/24/17 08:22 Dose: 12.5 mg Potassium Chloride (Klor Con Er Tab*) 20 meq PO DAILY [facility] Last Admin: 12/24/17 08:23 Dose: 20 meq Prochlorperazine Edisylate (Compazine Inj*) 5 mg IV Q6H PRN PRN Reason: NAUSEA/VOMITING Spironolactone (Aldactone Tab*) 25 mg PO DAILY@1700 [facility] Last Admin: 12/23/17 16:35 Dose: 25 mg Vital Signs - 8 hr 12/24/17 12/24/17 12/24/17 03:17 07:26 08:00 Temperature 98.2 F 98.2 F Pulse Rate 51 79 Respiratory 16 16 18 Rate Blood Pressure 138/63 143/71 (mmHg) O2 Sat by Pulse 98 98 Oximetry Oxygen Devices in Use Now: None Appearance: Pleasant gentleman sitting up in a recliner in NAD. Eyes: No Scleral Icterus Ears/Nose/Mouth/Throat: Mucous Membranes Moist Neck: Trachea Midline Respiratory: Symmetrical Chest Expansion and Respiratory Effort, - - BS+ bilaterally coarse Cardiovascular: - - Normal S1 and S2, irregularly irregular Abdominal: NL Sounds; No Tenderness; No Distention Extremities: - - Severe bilateral LE pitting edema Neurological: Alert and Oriented x 3, NL Muscle Strength and Tone Result Diagrams: 12/23/17 05:30 12/24/17 05:49 Assess/Plan/Problems-Billing Assessment: Mr. Persaud is a 62yo M with PMH of Afib, HTN, HLD, DM, non compliance, who presented to ED with c/o months of progressive dyspnea, found to have acute systolic CHF exacerbation. - Patient Problems (1) Acute systolic CHF (congestive heart failure) Comment: - Echo showed EF 20-25%. - Continue diuresis with Furosemide and Aldactone. - Fluid balance negative 1 liter yesterday - will give one dose of Metolazone today. - Continue metoprolol and Lisinopril. - Plan for cardiac cath in the near future. (2) Atrial fibrillation Comment: - Rate is controlled now. - Atria very large, so cardioversion likely won't be successful. - Plan for now is anticoagulation with heparin drip and rate control with Metoprolol. - [id number] is 3 (HF, HT, DM) - will need anticoagulation on discharge. (3) Elevated troponin Comment: - Maybe secondary to CAD/NSTEMI, CHF/Afib. - Continue Aspirin, Heparin, Metoprolol. - Patient states he had severe side effects with atorvastatin in the past, including DM and would prefer not to take statins. - LDL is 54, A1c is pending. - Plan for cardiac cath when CHF compensated. (4) Pneumonia Comment: - Patient had respiratory infection in October that he "could not get rid off". - CxR shows RLL consolidation suggestive of pneumonia. - Continue Ceftriaxone and Doxycycline. - Legionella and pneumococcal Ag are negative. (5) Diabetes Comment: - Hb A1c is 7, but glucose values are reasonable. - Will monitor FS. He'll likely benefit of Metformin on discharge. (6) DVT prophylaxis Comment: - Heparin drip. (7) Full code status Status and Disposition: Inpatient.
[2017-12-24] MEDS: Heparin DRIP 25,000 UNITS(*) 25,000 UNITS/500 ML BAG IV SCH (13:28)
[2017-12-24] MEDS: cefTRIAXone(*) 1 GM in NS 0.9% 50 ML* 50 ML IVPB SCH (16:55)
[2017-12-24] MEDS: Spironolactone TAB* 25 MG PO SCH (16:55)
[2017-12-24] MEDS: Lisinopril TAB* 5 MG PO SCH (20:43)
[2017-12-25] MEDS: DOXYcycline IV* 100 MG in NS 0.9% 250 ML* 250 ML IVPB SCH ×2 (05:31→17:50)
--- NOTE | 2017-12-25 06:51 | ED ---
Leland Leiva Tiffany, scribed for Francois Evans MD on 12/21/17 at 1503 . Shortness of Breath - HPI Summary HPI Summary: 62 year old M BIB EMS from [place] to [facility] complains of shortness of breath since two months ago. Symptoms aggravated by exertion. Symptoms alleviated by nothing. Additionally c/o recent weight gain of 20 lbs and loss of muscle mass. Reports cough with phlegm. Also reports intermittent left-sided chest heaviness , BLE edema. No hx MD. - History of Current Complaint Chief Complaint: EDShortnessOfBreath Time Seen by Provider: 12/21/17 14:00 Hx Obtained From: Patient Onset/Duration: Lasting Weeks - 2 months, Still Present Timing: Constant Aggrevating Factors: Other - exertion Alleviating Factors: Nothing - Allergy/Home Medications Allergies/Adverse Reactions: Allergies Allergy/AdvReac Type Severity Reaction Status Date / Time atorvastatin Allergy Unknown Verified 12/21/17 15:20 Reaction Details Home Medications: Home Medications Aspirin EC TAB* [Ecotrin EC Low Dose 81 MG*] 81 mg PO DAILY 12/21/17 [History Confirmed 12/21/17] PMH/Surg Hx/FS Hx/Imm Hx Previously Healthy: No Endocrine/Hematology History: Reports: Hx Diabetes Denies: Hx Thyroid Disease Cardiovascular History: Reports: Hx Atrial Fibrillation, Hx Hypertension Respiratory History: Denies: Hx Asthma, Hx Chronic Obstructive Pulmonary Disease (COPD) GI History: Reports: Hx Ulcer - presents with foot ulcer today - Cancer History Cancer Type, Location and Year: denies - Surgical History Surgery Procedure, Year, and Place: back surgery Infectious Disease History: No Infectious Disease History: Denies: Hx Clostridium Difficile, Hx Hepatitis, Hx Human Immunodeficiency Virus (HIV), Traveled Outside the [place] in Last 30 Days Comment Only: Hx of Known/Suspected MRSA - pt presents with possible skin infection - Family History Known Family History: Positive: Cardiac Disease - father had MD at 56 y/o, Hypertension - Social History Alcohol Use: None Hx Substance Use: No Substance Use Type: Reports: None Hx Tobacco Use: Yes Smoking Status (MU): Former Smoker Review of Systems Positive: Other - recent weight gain of 20 lbs and loss of muscle mass.. Negative: Fever, Chills Negative: Erythema Negative: Sore Throat Positive: Other - left-sided chest heaviness. Negative: Chest Pain Positive: Shortness Of Breath, Cough - with phlegm Negative: Abdominal Pain, Vomiting, Nausea Negative: dysuria, hematuria Positive: Edema - BLE. Negative: Myalgia Negative: Rash Neurological: Negative - Dizziness All Other Systems Reviewed And Are Negative: Yes Physical Exam - Summary Physical Exam Summary: Constitutional: Well-developed, Well-nourished, Alert. (-) Distressed Skin: Warm, Dry HENT: Normocephalic; Atraumatic Eyes: Conjunctiva normal Neck: Musculoskeletal ROM normal neck. (-) JVD, (-) Stridor, (-) Tracheal deviation Cardio: Rhythm regular, rate normal, Heart sounds normal; Intact distal pulses; The pedal pulses are 2+ and symmetric. Radial pulses are 2+ and symmetric. (-) Murmur Pulmonary/Chest wall: Crackles in the R lower base Abd: Soft, (-), epigastric tenderness, (-) Distension, (-) Guarding, (-) Rebound Musculoskeletal: (-) Edema Lymph: (-) Cervical adenopathy Neuro: Alert, Oriented x3 Psych: Mood and affect Normal Triage Information Reviewed: Yes Vital Signs On Initial Exam: Initial Vitals Resp 27 12/21/17 13:48 Vital Signs Reviewed: Yes Diagnostics - Vital Signs Vital Signs Temp Pulse Resp BP Pulse Ox 12/21/17 13:49 98 F 110 29 170/104 95 12/21/17 13:48 27 - Laboratory Lab Results: Lab Results 12/21/17 12/21/17 12/21/17 Range/Units 14:07 14:07 14:08 WBC 7.4 (3.5-10.8) 10^3/ul RBC 4.67 (4.00-5.40) 10^6/ul Hgb 13.2 L (14.0-18.0) g/dl Hct 40 L (42-52) % MCV 86 (80-94) fL MCH 28 (27-31) pg MCHC 33 (31-36) g/dl RDW 14 (10.5-15) % Plt Count 189 (150-450) 10^3/ul MPV 10.1 (7.4-10.4) um3 Neut % (Auto) 48.0 (38-83) % Lymph % (Auto) 37.5 (25-47) % [place] % (Auto) 12.7 H (0-7) % Eos % (Auto) 1.5 (0-6) % Baso % (Auto) 0.3 (0-2) % Absolute Neuts (auto) 3.6 (1.5-7.7) 10^3/ul Absolute Lymphs (auto) 2.8 (1.0-4.8) 10^3/ul Absolute Monos (auto) 0.9 H (0-0.8) 10^3/ul Absolute Eos (auto) 0.1 (0-0.6) 10^3/ul Absolute Basos (auto) 0 (0-0.2) 10^3/ul Absolute Nucleated RBC 0 10^3/ul Nucleated RBC % 0.1 Sodium 141 (135-145) mmol/L Potassium 4.2 (3.5-5.0) mmol/L Chloride 106 (101-111) mmol/L Carbon Dioxide 25 (22-32) mmol/L Anion Gap 10 (2-11) mmol/L BUN 8 (6-24) mg/dL Creatinine 0.77 (0.67-1.17) mg/dL Est GFR ( Amer) 124.3 (>60) Est GFR (Non-Af Amer) 102.7 (>60) BUN/Creatinine Ratio 10.4 (8-20) Glucose 126 H (70-100) mg/dL Lactic Acid 1.8 (0.5-2.0) mmol/L Calcium 9.1 (8.6-10.3) mg/dL Total Bilirubin 1.40 H (0.2-1.0) mg/dL AST 49 H (13-39) U/L ALT 33 (7-52) U/L Alkaline Phosphatase 171 H (34-104) U/L Troponin I 4.87 H* (<0.04) ng/mL B-Natriuretic Peptide ( - 100) pg/mL Total Protein 6.1 L (6.4-8.9) g/dL Albumin 3.6 (3.2-5.2) g/dL Globulin 2.5 (2-4) g/dL Albumin/Globulin Ratio 1.4 (1-3) 12/21/17 Range/Units 14:08 WBC (3.5-10.8) 10^3/ul RBC (4.00-5.40) 10^6/ul Hgb (14.0-18.0) g/dl Hct (42-52) % MCV (80-94) fL MCH (27-31) pg MCHC (31-36) g/dl RDW (10.5-15) % Plt Count (150-450) 10^3/ul MPV (7.4-10.4) um3 Neut % (Auto) (38-83) % Lymph % (Auto) (25-47) % [place] % (Auto) (0-7) % Eos % (Auto) (0-6) % Baso % (Auto) (0-2) % Absolute Neuts (auto) (1.5-7.7) 10^3/ul Absolute Lymphs (auto) (1.0-4.8) 10^3/ul Absolute Monos (auto) (0-0.8) 10^3/ul Absolute Eos (auto) (0-0.6) 10^3/ul Absolute Basos (auto) (0-0.2) 10^3/ul Absolute Nucleated RBC 10^3/ul Nucleated RBC % Sodium (135-145) mmol/L Potassium (3.5-5.0) mmol/L Chloride (101-111) mmol/L Carbon Dioxide (22-32) mmol/L Anion Gap (2-11) mmol/L BUN (6-24) mg/dL Creatinine (0.67-1.17) mg/dL Est GFR ( Amer) (>60) Est GFR (Non-Af Amer) (>60) BUN/Creatinine Ratio (8-20) Glucose (70-100) mg/dL Lactic Acid (0.5-2.0) mmol/L Calcium (8.6-10.3) mg/dL Total Bilirubin (0.2-1.0) mg/dL AST (13-39) U/L ALT (7-52) U/L Alkaline Phosphatase (34-104) U/L Troponin I (<0.04) ng/mL B-Natriuretic Peptide 1758 H ( - 100) pg/mL Total Protein (6.4-8.9) g/dL Albumin (3.2-5.2) g/dL Globulin (2-4) g/dL Albumin/Globulin Ratio (1-3) Result Diagrams: 12/21/17 14:07 12/21/17 14:07 Lab Statement: Any lab studies that have been ordered have been reviewed, and results considered in the medical decision making process. - Radiology CXR Radiology Interpretation Completed By: Radiologist - RIGHT LOWER LUNG CONSOLIDATION WITH SMALL RIGHT PLEURAL EFFUSION. RECOMMEND FOLLOW-UP UNTIL RESOLUTION TO EXCLUDE UNDERLYING PULMONARY PARENCHYMAL PATHOLOGY. ED physician has reviewed this report. - EKG 1425 Cardiac Rate: Tachycardia - 106 BPM EKG Rhythm: Atrial Fibrillation EKG Interpretation: Rapid A-FIB Course/Dx - Course Course Of Treatment: 62 year old M BIB EMS from [place] to [facility] c/o shortness of breath since two months ago. Bloodwork obtained. EKG shows A-fib. CXR shows RIGHT LOWER LUNG CONSOLIDATION WITH SMALL RIGHT PLEURAL EFFUSION. Dr. Williamson , cardiology, recommends ICU admission on Heparin drip. Discussed ICU placement with Dr. Hawkins, hospitalist, at 1518. Patient will be admitted to ICU. - Diagnoses Provider Diagnoses: Non-ST elevated myocardial infarction (non-STEMI), CHF exacerbation, Rapid atrial fibrillation, Non compliance w medication regimen, Uncontrolled hypertension, Uncontrolled diabetes mellitus - Physician Notifications Discussed Care of Patient With: Ankita Williamson Time Discussed With Above Provider: 15:07 Instructed by Provider To: Other - Dr. Williamson, cardiology, recommends ICU admission on Heparin drip. Discussed ICU placement with Dr. Hawkins, hospitalist, at 1518. - Critical Care Time Critical Care Time: 30-74 min - 60 minutes Discharge - Sign-Out/Discharge Documenting (check all that apply): Discharge/Admit/Transfer - Admit - Discharge Plan Referrals: Compa Andujar MD [Primary Care Provider] - The documentation as recorded by the susan, Nalini Ha SCRIBE accurately reflects the service I personally performed and the decisions made by , Francois Evans MD.
[2017-12-25 06:57] LABS: ABS Basophils 0 10^3/ul (0-0.2); ABS Eosinophils 0.3 10^3/ul (0-0.6); ABS Lymphocytes 3.4 10^3/ul (1.0-4.8); ABS Monocytes 0.8 10^3/ul (0-0.8); ABS Neutrophils 3.1 10^3/ul (1.5-7.7); ABS Nucleated RBC 0 10^3/ul; Eosinophil % 4.3 % (0-6); Hematocrit 40 % (42-52); Hemoglobin 13.2 g/dl (14.0-18.0); Mean Corpuscular HGB Conc 33 g/dl (31-36); Mean Corpuscular Hemoglobin 28 pg (27-31); Mean Corpuscular Volume 85 fL (80-94); Mean Platelet Volume 9.3 um3 (7.4-10.4); Nucleated Red Blood Cells % 0.1; Platelet Count 166 10^3/ul (150-450); Red Blood Count 4.65 10^6/ul (4.00-5.40); Red Cell Distribution Width 14 % (10.5-15); White Blood Count 7.7 10^3/ul (3.5-10.8)
[2017-12-25 07:16] LABS: EGFR Non-African American 114.6 (>60)
[2017-12-25] MEDS: Furosemide IV* 10 MG/ML VIAL (40 MG) IV SLOW PU SCH (09:25)
[2017-12-25] MEDS: Metoprolol Tartrate TAB* 25 MG PO SCH ×2 (09:25→22:02)
[2017-12-25] MEDS: Potassium Chlor TAB* 20 MEQ TAB.ER PO SCH (09:25)
[2017-12-25] MEDS: Aspirin EC TAB* 81 MG TAB.EC PO SCH (09:26)
[2017-12-25] MEDS: Heparin DRIP 25,000 UNITS(*) 25,000 UNITS/500 ML BAG IV SCH (11:49)
[2017-12-25] MEDS: Spironolactone TAB* 25 MG PO SCH (17:18)
[2017-12-25] MEDS: cefTRIAXone(*) 1 GM in NS 0.9% 50 ML* 50 ML IVPB SCH (17:18)
--- NOTE | 2017-12-25 17:30 | PN ---
Subjective Date of Service: 12/25/17 Interval History: No longer SOB, slept flat last night. No chest pain, no new c/o. Family History: Unchanged from Admission Social History: Unchanged from Admission Past Medical History: Unchanged from Admission Objective Active Medications: Acetaminophen (Tylenol Tab*) 650 mg PO Q6H PRN PRN Reason: pain/fever Aspirin (Aspirin Ec Tab*) 81 mg PO DAILY [facility] Last Admin: 12/25/17 09:26 Dose: 81 mg Heparin Sodium (Porcine) (Heparin Vial(*)) 4,000 units IV ED ONCE [facility] Last Admin: 12/21/17 15:55 Dose: 4,000 units Heparin Sodium/Dextrose (Heparin Drip 25,000 Units(*)) 25,000 units in 500 mls @ 0 mls/hr IV PER RATE [facility]; Protocol Last Admin: 12/25/17 11:49 Dose: 24 mls/hr Doxycycline Hyclate 100 mg/ (Sodium Chloride) 250 mls @ 250 mls/hr IVPB Q12H [facility] Last Admin: 12/25/17 05:31 Dose: 250 mls/hr Ceftriaxone Sodium 1 gm/ (Sodium Chloride) 50 mls @ 200 mls/hr IVPB Q24H [facility] Last Admin: 12/25/17 17:18 Dose: 200 mls/hr Lisinopril (Prinivil Tab*) 5 mg PO BEDTIME [facility] Last Admin: 12/24/17 20:43 Dose: 5 mg Metoprolol Tartrate (Lopressor Tab*) 12.5 mg PO Q12HR [facility] Last Admin: 12/25/17 09:25 Dose: 12.5 mg Potassium Chloride (Klor Con Er Tab*) 20 meq PO DAILY [facility] Last Admin: 12/25/17 09:25 Dose: 20 meq Prochlorperazine Edisylate (Compazine Inj*) 5 mg IV Q6H PRN PRN Reason: NAUSEA/VOMITING Spironolactone (Aldactone Tab*) 25 mg PO DAILY@1700 [facility] Last Admin: 12/25/17 17:18 Dose: 25 mg Torsemide (Demadex*) 20 mg PO DAILY [facility] Vital Signs - 8 hr 12/25/17 11:15 Temperature 98.2 F Pulse Rate 66 Respiratory 20 Rate Blood Pressure 111/56 (mmHg) O2 Sat by Pulse 97 Oximetry Oxygen Devices in Use Now: None Appearance: Alert, sitting in a chair. In good spirits. Looks comfortable. Eyes: No Scleral Icterus Neck: NL Appearance and Movements; NL JVP, No Thyroid Enlargement, Masses Respiratory: Symmetrical Chest Expansion and Respiratory Effort, Clear to Auscultation, Clear to Percussion Cardiovascular: NL Sounds; No Murmurs; No JVD, No Edema, - - irreg Extremities: No Clubbing, Cyanosis, - - tr edema BL Skin: No Rash or Ulcers, No Nodules or Sclerosis, - Neurological: Alert and Oriented x 3, NL Sensation Result Diagrams: 12/25/17 06:44 12/25/17 06:44 Additional Lab and Data: Lab Results 12/21/17 12/21/17 12/21/17 Range/Units 14:07 14:07 14:08 WBC 7.4 (3.5-10.8) 10^3/ul RBC 4.67 (4.00-5.40) 10^6/ul Hgb 13.2 L (14.0-18.0) g/dl Hct 40 L (42-52) % MCV 86 (80-94) fL MCH 28 (27-31) pg MCHC 33 (31-36) g/dl RDW 14 (10.5-15) % Plt Count 189 (150-450) 10^3/ul MPV 10.1 (7.4-10.4) um3 Neut % (Auto) 48.0 (38-83) % Lymph % (Auto) 37.5 (25-47) % Tate % (Auto) 12.7 H (0-7) % Eos % (Auto) 1.5 (0-6) % Baso % (Auto) 0.3 (0-2) % Absolute Neuts (auto) 3.6 (1.5-7.7) 10^3/ul Absolute Lymphs (auto) 2.8 (1.0-4.8) 10^3/ul Absolute Monos (auto) 0.9 H (0-0.8) 10^3/ul Absolute Eos (auto) 0.1 (0-0.6) 10^3/ul Absolute Basos (auto) 0 (0-0.2) 10^3/ul Absolute Nucleated RBC 0 10^3/ul Nucleated RBC % 0.1 Sodium 141 (135-145) mmol/L Potassium 4.2 (3.5-5.0) mmol/L Chloride 106 (101-111) mmol/L Carbon Dioxide 25 (22-32) mmol/L Anion Gap 10 (2-11) mmol/L BUN 8 (6-24) mg/dL Creatinine 0.77 (0.67-1.17) mg/dL Est GFR ( Amer) 124.3 (>60) Est GFR (Non-Af Amer) 102.7 (>60) BUN/Creatinine Ratio 10.4 (8-20) Glucose 126 H (70-100) mg/dL Lactic Acid 1.8 (0.5-2.0) mmol/L Calcium 9.1 (8.6-10.3) mg/dL Total Bilirubin 1.40 H (0.2-1.0) mg/dL AST 49 H (13-39) U/L ALT 33 (7-52) U/L Alkaline Phosphatase 171 H (34-104) U/L Troponin I 4.87 H* (<0.04) ng/mL B-Natriuretic Peptide ( - 100) pg/mL Total Protein 6.1 L (6.4-8.9) g/dL Albumin 3.6 (3.2-5.2) g/dL Globulin 2.5 (2-4) g/dL Albumin/Globulin Ratio 1.4 (1-3) /06/18 Range/Units 14:08 WBC (3.5-10.8) 10^3/ul RBC (4.00-5.40) 10^6/ul Hgb (14.0-18.0) g/dl Hct (42-52) % MCV (80-94) fL MCH (27-31) pg MCHC (31-36) g/dl RDW (10.5-15) % Plt Count (150-450) 10^3/ul MPV (7.4-10.4) um3 Neut % (Auto) (38-83) % Lymph % (Auto) (25-47) % Tate % (Auto) (0-7) % Eos % (Auto) (0-6) % Baso % (Auto) (0-2) % Absolute Neuts (auto) (1.5-7.7) 10^3/ul Absolute Lymphs (auto) (1.0-4.8) 10^3/ul Absolute Monos (auto) (0-0.8) 10^3/ul Absolute Eos (auto) (0-0.6) 10^3/ul Absolute Basos (auto) (0-0.2) 10^3/ul Absolute Nucleated RBC 10^3/ul Nucleated RBC % Sodium (135-145) mmol/L Potassium (3.5-5.0) mmol/L Chloride (101-111) mmol/L Carbon Dioxide (22-32) mmol/L Anion Gap (2-11) mmol/L BUN (6-24) mg/dL Creatinine (0.67-1.17) mg/dL Est GFR ( Amer) (>60) Est GFR (Non-Af Amer) (>60) BUN/Creatinine Ratio (8-20) Glucose (70-100) mg/dL Lactic Acid (0.5-2.0) mmol/L Calcium (8.6-10.3) mg/dL Total Bilirubin (0.2-1.0) mg/dL AST (13-39) U/L ALT (7-52) U/L Alkaline Phosphatase (34-104) U/L Troponin I (<0.04) ng/mL B-Natriuretic Peptide 1758 H ( - 100) pg/mL Total Protein (6.4-8.9) g/dL Albumin (3.2-5.2) g/dL Globulin (2-4) g/dL Albumin/Globulin Ratio (1-3) Microbiology and Other Data: Microbiology 12/22/17 08:15 Legionella Urinary Antigen - Final Urine Negative Legionella Antigen Streptococcus pneumoniae Ag Screen - Final Negative S. pneumo Antigen 12/21/17 18:55 Nasal Screen MRSA (PCR) - Final Nasal Mrsa Not Detected Assess/Plan/Problems-Billing Assessment: Mr. Persaud is a 62yo M with PMH of Afib, HTN, HLD, DM, non compliance, who presented to ED with c/o months of progressive dyspnea, found to have acute systolic CHF exacerbation. - Patient Problems (1) Acute systolic CHF (congestive heart failure) Current Visit: Yes Status: Acute Code(s): I50.21 - ACUTE SYSTOLIC ( CONGESTIVE) HEART FAILURE SNOMED Code(s): 340005746 Comment: - Echo showed EF 20-25%. Edema resolved. Start po torsemide 12/26, continue lisinopril, metoprolol, spironolactone. Plan on switch to eplerenone on d/c. I will discuss timing of cardiac cath with Dr. Alvarado. (2) Diabetes Current Visit: Yes Status: Acute Code(s): E11.9 - TYPE 2 DIABETES MELLITUS WITHOUT COMPLICATIONS SNOMED Code(s): 59986735 Comment: - Hb A1c is 7, but glucose values are reasonable. - Continue FS glucose bid. Needs outpt fup. (3) Pneumonia Current Visit: Yes Status: Acute Code(s): J18.9 - PNEUMONIA, UNSPECIFIED ORGANISM SNOMED Code(s): 111642090 Comment: - Patient had respiratory infection in October that he "could not get rid off". - CxR shows RLL consolidation suggestive of pneumonia. - Continue Ceftriaxone and Doxycycline, complete 7 days tx po on discharge. - Legionella and pneumococcal Ag are negative. Status and Disposition: Inpatient.
[2017-12-25] MEDS: Lisinopril TAB* 5 MG PO SCH (22:01)
[2017-12-26] MEDS: DOXYcycline IV* 100 MG in NS 0.9% 250 ML* 250 ML IVPB SCH ×2 (06:08→18:10)
[2017-12-26] MEDS ORDERED: Heparin DRIP 25,000 UNITS(*) 25,000 UNITS/500 ML BAG IV SCH (09:00)
[2017-12-26] MEDS ORDERED: Apixaban* 5 MG TAB PO SCH (09:00)
[2017-12-26] MEDS ORDERED: Heparin VIAL(*) 5000 UNITS/ML VIAL (FIVE THOUSAND) IV PRN (09:03)
[2017-12-26] MEDS ORDERED: Diazepam TAB(*) 5 MG PO ONE ×2 (09:20)
[2017-12-26] MEDS: Potassium Chlor TAB* 20 MEQ TAB.ER PO SCH (09:33)
[2017-12-26] MEDS: Torsemide TAB* 20 MG PO SCH (09:34)
[2017-12-26] MEDS: Aspirin EC TAB* 81 MG TAB.EC PO SCH (09:34)
[2017-12-26] MEDS: Metoprolol Tartrate TAB* 25 MG PO SCH ×2 (09:35→22:35)
--- NOTE | 2017-12-26 10:43 | PN ---
Subjective Date of Service: 12/26/17 Interval History: No more SOB, can now lay flat to sleep at night. No chest pain, no new c/o. Family History: Unchanged from Admission Social History: Unchanged from Admission Past Medical History: Unchanged from Admission Objective Active Medications: Acetaminophen (Tylenol Tab*) 650 mg PO Q6H PRN PRN Reason: pain/fever Aspirin (Aspirin Ec Tab*) 81 mg PO DAILY [facility] Last Admin: 12/26/17 09:34 Dose: 81 mg Heparin Sodium (Porcine) (Heparin Vial(*)) 0 units IV .PER PROTOCOL PRN PRN Reason: FOR SLIDING SCALE BOLUSES Last Admin: 12/26/17 09:34 Dose: 1,000 units Doxycycline Hyclate 100 mg/ (Sodium Chloride) 250 mls @ 250 mls/hr IVPB Q12H [facility] Last Admin: 12/26/17 06:08 Dose: 250 mls/hr Ceftriaxone Sodium 1 gm/ (Sodium Chloride) 50 mls @ 200 mls/hr IVPB Q24H [facility] Last Admin: 12/25/17 17:18 Dose: 200 mls/hr Heparin Sodium/Dextrose (Heparin Drip 25,000 Units(*)) 25,000 units in 500 mls @ 0 mls/hr IV PER RATE [facility]; Protocol Sodium Chloride (Ns 0.9% 1000 Ml*) 1,000 mls @ 75 mls/hr IV .per rate [facility] Lisinopril (Prinivil Tab*) 5 mg PO BEDTIME [facility] Last Admin: 12/25/17 22:01 Dose: 5 mg Metoprolol Tartrate (Lopressor Tab*) 12.5 mg PO Q12HR [facility] Last Admin: 12/26/17 09:35 Dose: 12.5 mg Potassium Chloride (Klor Con Er Tab*) 20 meq PO DAILY [facility] Last Admin: 12/26/17 09:33 Dose: 20 meq Prochlorperazine Edisylate (Compazine Inj*) 5 mg IV Q6H PRN PRN Reason: NAUSEA/VOMITING Spironolactone (Aldactone Tab*) 25 mg PO DAILY@1700 [facility] Last Admin: 12/25/17 17:18 Dose: 25 mg Torsemide (Demadex*) 20 mg PO DAILY [facility] Last Admin: 12/26/17 09:34 Dose: 20 mg Vital Signs - 8 hr 12/26/17 12/26/17 12/26/17 03:21 07:41 08:00 Temperature 98.2 F 97.7 F Pulse Rate 84 76 Respiratory 20 16 18 Rate Blood Pressure 110/55 138/66 (mmHg) O2 Sat by Pulse 96 98 Oximetry Oxygen Devices in Use Now: None Appearance: Alert, standing in his room. IN good spirits. Looks comfortable. Eyes: No Scleral Icterus Cardiovascular: No Edema, - - No JVD. Irreg. Extremities: No Edema, No Clubbing, Cyanosis, - Skin: No Rash or Ulcers, No Nodules or Sclerosis, - Neurological: Alert and Oriented x 3, NL Sensation Result Diagrams: 12/25/17 06:44 12/25/17 06:44 Additional Lab and Data: Lab Results 12/21/17 12/21/17 12/21/17 Range/Units 14:07 14:07 14:08 WBC 7.4 (3.5-10.8) 10^3/ul RBC 4.67 (4.00-5.40) 10^6/ul Hgb 13.2 L (14.0-18.0) g/dl Hct 40 L (42-52) % MCV 86 (80-94) fL MCH 28 (27-31) pg MCHC 33 (31-36) g/dl RDW 14 (10.5-15) % Plt Count 189 (150-450) 10^3/ul MPV 10.1 (7.4-10.4) um3 Neut % (Auto) 48.0 (38-83) % Lymph % (Auto) 37.5 (25-47) % [place]ult[place] % (Auto) 12.7 H (0-7) % Eos % (Auto) 1.5 (0-6) % Baso % (Auto) 0.3 (0-2) % Absolute Neuts (auto) 3.6 (1.5-7.7) 10^3/ul Absolute Lymphs (auto) 2.8 (1.0-4.8) 10^3/ul Absolute Monos (auto) 0.9 H (0-0.8) 10^3/ul Absolute Eos (auto) 0.1 (0-0.6) 10^3/ul Absolute Basos (auto) 0 (0-0.2) 10^3/ul Absolute Nucleated RBC 0 10^3/ul Nucleated RBC % 0.1 Sodium 141 (135-145) mmol/L Potassium 4.2 (3.5-5.0) mmol/L Chloride 106 (101-111) mmol/L Carbon Dioxide 25 (22-32) mmol/L Anion Gap 10 (2-11) mmol/L BUN 8 (6-24) mg/dL Creatinine 0.77 (0.67-1.17) mg/dL Est GFR ( Amer) 124.3 (>60) Est GFR (Non-Af Amer) 102.7 (>60) BUN/Creatinine Ratio 10.4 (8-20) Glucose 126 H (70-100) mg/dL Lactic Acid 1.8 (0.5-2.0) mmol/L Calcium 9.1 (8.6-10.3) mg/dL Total Bilirubin 1.40 H (0.2-1.0) mg/dL AST 49 H (13-39) U/L ALT 33 (7-52) U/L Alkaline Phosphatase 171 H (34-104) U/L Troponin I 4.87 H* (<0.04) ng/mL B-Natriuretic Peptide ( - 100) pg/mL Total Protein 6.1 L (6.4-8.9) g/dL Albumin 3.6 (3.2-5.2) g/dL Globulin 2.5 (2-4) g/dL Albumin/Globulin Ratio 1.4 (1-3) 12/21/17 Range/Units 14:08 WBC (3.5-10.8) 10^3/ul RBC (4.00-5.40) 10^6/ul Hgb (14.0-18.0) g/dl Hct (42-52) % MCV (80-94) fL MCH (27-31) pg MCHC (31-36) g/dl RDW (10.5-15) % Plt Count (150-450) 10^3/ul MPV (7.4-10.4) um3 Neut % (Auto) (38-83) % Lymph % (Auto) (25-47) % [place]ulton % (Auto) (0-7) % Eos % (Auto) (0-6) % Baso % (Auto) (0-2) % Absolute Neuts (auto) (1.5-7.7) 10^3/ul Absolute Lymphs (auto) (1.0-4.8) 10^3/ul Absolute Monos (auto) (0-0.8) 10^3/ul Absolute Eos (auto) (0-0.6) 10^3/ul Absolute Basos (auto) (0-0.2) 10^3/ul Absolute Nucleated RBC 10^3/ul Nucleated RBC % Sodium (135-145) mmol/L Potassium (3.5-5.0) mmol/L Chloride (101-111) mmol/L Carbon Dioxide (22-32) mmol/L Anion Gap (2-11) mmol/L BUN (6-24) mg/dL Creatinine (0.67-1.17) mg/dL Est GFR ( Amer) (>60) Est GFR (Non-Af Amer) (>60) BUN/Creatinine Ratio (8-20) Glucose (70-100) mg/dL Lactic Acid (0.5-2.0) mmol/L Calcium (8.6-10.3) mg/dL Total Bilirubin (0.2-1.0) mg/dL AST (13-39) U/L ALT (7-52) U/L Alkaline Phosphatase (34-104) U/L Troponin I (<0.04) ng/mL B-Natriuretic Peptide 1758 H ( - 100) pg/mL Total Protein (6.4-8.9) g/dL Albumin (3.2-5.2) g/dL Globulin (2-4) g/dL Albumin/Globulin Ratio (1-3) Microbiology and Other Data: Microbiology 12/22/17 08:15 Legionella Urinary Antigen - Final Urine Negative Legionella Antigen Streptococcus pneumoniae Ag Screen - Final Negative S. pneumo Antigen 12/21/17 18:55 Nasal Screen MRSA (PCR) - Final Nasal Mrsa Not Detected Assess/Plan/Problems-Billing Assessment: Mr. Persaud is a 62yo M with PMH of Afib, HTN, HLD, DM, non compliance, who presented to ED with c/o months of progressive dyspnea, found to have acute systolic CHF exacerbation. - Patient Problems (1) Acute systolic CHF (congestive heart failure) Current Visit: Yes Status: Acute Code(s): I50.21 - ACUTE SYSTOLIC ( CONGESTIVE) HEART FAILURE SNOMED Code(s): 869986352 Comment: - Echo showed EF 20-25%. Edema resolved. Start po torsemide 12/26, continue lisinopril, metoprolol, spironolactone. Plan on switch to eplerenone on d/c. Discussed with Drs. Milan and Alisson. Cardiac cath 12/26 showed non- obstructive CAD. Plan start apixaban 12/27 6 AM. (2) Diabetes Current Visit: Yes Status: Acute Code(s): E11.9 - TYPE 2 DIABETES MELLITUS WITHOUT COMPLICATIONS SNOMED Code(s): 12967649 Comment: - Hb A1c is 7, but glucose values are reasonable. - Continue FS glucose bid. Needs outpt fup. (3) Pneumonia Current Visit: Yes Status: Acute Code(s): J18.9 - PNEUMONIA, UNSPECIFIED ORGANISM SNOMED Code(s): 547807182 Comment: - Patient had respiratory infection in October that he "could not get rid off". - CxR shows RLL consolidation suggestive of pneumonia. - Continue Ceftriaxone and Doxycycline, complete 7 days tx po on discharge. - Legionella and pneumococcal Ag are negative. (4) Atrial fibrillation Current Visit: Yes Status: Acute Code(s): I48.91 - UNSPECIFIED ATRIAL FIBRILLATION SNOMED Code(s): 81996282 Comment: - Rate is controlled now. Plan start apixaban 12/27 6 AM. Continue metoprolol. Status and Disposition: Inpatient.
[2017-12-26] MEDS ORDERED: NS 0.9% 1000 ML* 1,000 ML IV SCH ×2 (11:00→17:00)
[2017-12-26] MEDS ORDERED: VERAPAMIL 2.5 MG/ML 2 ML VIAL ** 5 mg/2 ml ONE (13:25)
[2017-12-26] MEDS ORDERED: Heparin(*) 1000 UNIT/ML 10 ML VIAL CATH LAB IV ONE (13:25)
[2017-12-26] MEDS ORDERED: Heparin 2 UNITS/ML IVPREMIX* 2,000 ML IV ONE (13:25)
[2017-12-26] MEDS ORDERED: Midazolam* 1 MG/ML 10 ML VIAL (10 MG) ONE (13:25)
[2017-12-26] MEDS ORDERED: fentaNYL* 50 MCG/ML 2 ML VIAL (100 MCG VIAL) ONE (13:25)
[2017-12-26] MEDS ORDERED: Iohexol 350 (CONTRAST) 200 ML MDV IV ONE (13:26)
[2017-12-26] MEDS ORDERED: nitroGLYCERIN DRIP* 25,000 MCG/250 ML BTL ONE (13:26)
[2017-12-26] MEDS ORDERED: Lidocaine 1%* 5 ML VIAL ONE (13:42)
[2017-12-26] MEDS: Spironolactone TAB* 25 MG PO SCH (17:11)
[2017-12-26] MEDS: cefTRIAXone(*) 1 GM in NS 0.9% 50 ML* 50 ML IVPB SCH (17:11)
--- NOTE | 2017-12-26 18:49 | PN ---
Subjective Date of Service: 12/26/17 - CC: SOB, leg swelling Interval History: The patient is s/p cardiac catheterization today. No pain in R wrist. Breathing and leg swelling much improved. No chest pain, no SOB lying at 30 degrees. Medications Active Medications: Acetaminophen (Tylenol Tab*) 650 mg PO Q6H PRN PRN Reason: pain/fever Apixaban (Eliquis*) 5 mg PO BID [facility] Aspirin (Aspirin Ec Tab*) 81 mg PO DAILY [facility] Last Admin: 12/26/17 09:34 Dose: 81 mg Doxycycline Hyclate 100 mg/ (Sodium Chloride) 250 mls @ 250 mls/hr IVPB Q12H [facility] Last Admin: 12/26/17 18:10 Dose: 250 mls/hr Ceftriaxone Sodium 1 gm/ (Sodium Chloride) 50 mls @ 200 mls/hr IVPB Q24H [facility] Last Admin: 12/26/17 17:11 Dose: 200 mls/hr Sodium Chloride (Ns 0.9% 1000 Ml*) 1,000 mls @ 75 mls/hr IV .per rate [facility] Stop: 12/26/17 20:00 Last Admin: 12/26/17 17:11 Dose: 75 mls/hr Lisinopril (Prinivil Tab*) 5 mg PO BEDTIME [facility] Last Admin: 12/25/17 22:01 Dose: 5 mg Metoprolol Tartrate (Lopressor Tab*) 12.5 mg PO Q12HR [facility] Last Admin: 12/26/17 09:35 Dose: 12.5 mg Potassium Chloride (Klor Con Er Tab*) 20 meq PO DAILY [facility] Last Admin: 12/26/17 09:33 Dose: 20 meq Prochlorperazine Edisylate (Compazine Inj*) 5 mg IV Q6H PRN PRN Reason: NAUSEA/VOMITING Spironolactone (Aldactone Tab*) 25 mg PO DAILY@1700 [facility] Last Admin: 12/26/17 17:11 Dose: 25 mg Torsemide (Demadex*) 20 mg PO DAILY [facility] Last Admin: 12/26/17 09:34 Dose: 20 mg Objective Vital Signs: Temp Pulse Resp BP Pulse Ox 97.6 F 80 14 136/51 96 12/26/17 17:28 12/26/17 17:28 12/26/17 17:30 12/26/17 17:28 12/26/17 17:28 Oxygen Devices in Use Now: None Appearance: Lying in bed, nearly flat, comfortable. Eyes: No Scleral Icterus, PERRLA Ears/Nose/Mouth/Throat: Clear Oropharnyx Neck: No Thyroid Enlargement, Masses Respiratory: Symmetrical Chest Expansion and Respiratory Effort - clear lungs, much improved c/w weekend. Cardiovascular: NL Sounds; No Murmurs; No JVD, - - irregulaly irregular Abdominal: - - only mildly distended, much improved, non tender, normal bowel sounds, soft. Lymphatic: No Cervical Adenopathy Extremities: No Clubbing, Cyanosis - mild edema, lower legs, improved. Neurological: Alert and Oriented x 3 Lines/Tubes/Other Access: Clean, Dry and Intact Peripheral IV Nutrition: Taking PO's Laboratory Results: 12/25/17 06:44 12/25/17 06:44 INR (Anticoag Therapy) 1.37 (0.77-1.02) H 12/21/17 18:05 APTT 41.7 seconds (26.0-36.3) H 12/26/17 06:46 Total Bilirubin 1.40 mg/dL (0.2-1.0) H 12/21/17 14:07 AST 49 U/L (13-39) H 12/21/17 14:07 ALT 33 U/L (7-52) 12/21/17 14:07 Alkaline Phosphatase 171 U/L (34-104) H 12/21/17 14:07 B-Natriuretic Peptide 1758 pg/mL (-100) H 12/21/17 14:08 Total Protein 6.1 g/dL (6.4-8.9) L 12/21/17 14:07 Albumin 3.6 g/dL (3.2-5.2) 12/21/17 14:07 Globulin 2.5 g/dL (2-4) 12/21/17 14:07 Albumin/Globulin Ratio 1.4 (1-3) 12/21/17 14:07 Triglycerides 58 mg/dL 12/22/17 04:12 Cholesterol 89 mg/dL 12/22/17 04:12 LDL Cholesterol 54 mg/dL 12/22/17 04:12 HDL Cholesterol 23.7 mg/dL 12/22/17 04:12 12/21/17 12/21/1718 14:07 18:05 21:53 Troponin I 4.87 H* 4.94 H* 4.77 H* 12/22/17 04:12 Troponin I 3.98 H* Diagnostic Imaging: ECHO 12/21/17: LVEF 20-25%, RV moderate hypokinesis, mild to moderate MR and TR, PApr 54 mmHg. CXR 12/21/17: RLL consolidation and effusion. Cardiac catheterization 12/26/17: 45-50% LAD, 30% RCA occlusions. EKG Data: Afib, rate approx. 100 bpm (chronic) Assessment/Plan 62 yo admitted with months of progressive orthopnea, SMITH, LE edema found in afib of uncertain duration, severe CM, elevated PApressure and troponins elevated, but fairly even. CHF and volume overload: Responded well to dieresis, continue current diuretics outpatient. CM: Continue ACEI and Beta joey. Continue aldactone. Recommend re echo as outpatient, EF might improve with medical management. At risk for VT is no improvement. Careful diet (salt), daily weights, will need to follow closely with primary care/cardiology for labs and fluid status. Troponin elevation: Mild to moderate CAD, no indication for intervention. Optimize rate control, CHF. Lipids normal, no statin. Consider ASA 81 mg if bleeding risk not felt to be too high, at 62 yo I think OK for NOAC + ASA. AFIB: Agree with plans for converting heparin to NOAC in AM Continue metoprolol for rate control and CM. Follow up with cardiology December or January.
[2017-12-26] MEDS: Lisinopril TAB* 5 MG PO SCH (22:34)
[2017-12-27] MEDS: DOXYcycline IV* 100 MG in NS 0.9% 250 ML* 250 ML IVPB SCH (06:04)
[2017-12-27 07:16] LABS: EGFR Non-African American 101.2 (>60)
[2017-12-27 07:52] VITALS: BP 149/64
--- NOTE | 2017-12-27 08:58 | CATH ---
CARDIAC CATHETERIZATION REPORT: DATE OF PROCEDURE: 12/26/17 INDICATIONS FOR PROCEDURE: I was asked by Dr. Vinson to perform diagnostic coronary arteriography in light of the patient's presentation with a severe cardiomyopathy, EF 20% to 25%, assessed for the presence of significant coronary artery disease. PROCEDURE: Coronary arteriography. The patient was interviewed and examined on the floor of the hospital where the risks and benefits were explained. He understood them and wished to proceed. The right radial artery was assessed on the floor of the hospital and found to be of eligible size for diagnostic procedure. The precardiac catheterization laboratory results: hemoglobin and hematocrit of 13.2 and 40, platelet count of 166,000, BUN and creatinine were 16 and 0.7. Sodium 141, potassium 4.1, chloride 106, bicarb 26. INR was 1.34. EQUIPMENT UTILIZED: 1. Right radial artery sheath with a 5-Brazilian glide sheath by [employer] 2. Diagnostic coronary catheter with a 5-Brazilian TIG4 curve [employer] catheter. 3. Exchange wire with a Shin curved guidewire. MEDICATIONS GIVEN DURING THE SAP PORTAL ARCHITECT: Included a radial artery cocktail which included 3000 units of heparin, 300 mcg of nitroglycerin, and 3 mg of Verapamil. PROCEDURE IN DETAIL: The patient was brought to the cardiovascular laboratory where a formal time- out was performed. The patient was prepped and draped in a sterile fashion. Right radial artery area was anesthetized with 1% lidocaine. Right radial artery was cannulated and the introducer was placed. The diagnostic catheter was passed over the [employer] guidewire under fluoroscopy into the ascending aorta. The coronary arteriography was then performed. Following this the wire was introduced to straighten the catheter as it was removed from the artery. The sheath was then removed and hemostasis was obtained with a vas band. The reverse Barbeau was found to be a B post sheath removal. The total contrast used was 50 cc of Omnipaque dye, the radiation exposure included 2.9 minutes of Fluoro time. The air kerma radiation was 834 mGy, the DAP radiation was 4827 microgray per meter square. RESULTS: CORONARY ARTERIOGRAPHY: A. Left coronary artery. 1. Left main. Widely patent. 2. Left anterior descending artery - there was a 45% to 50% proximal narrowing noted in the left anterior descending artery at the take off of a first diagonal branch. The first diagonal branch had no significant lesions. The LAD traversed toward the apical region, but not onto the low inferior apical or distal inferior wall. 3. Circumflex artery - a codominant vessel supplying a high 1st obtuse marginal branch followed by a small 2nd and a moderate-sized 3rd obtuse marginal branch and a low-lying posterior LV branch and a final posterior LV branch that paralleled PDA. There was no significant stenosis seen throughout the course of this vessel. B. Right coronary artery. A dominant vessel supplying the PDA, but no significant posterior left ventricular branches. There was a very mild 30% proximal narrowing seen. Of note, the posterior descending artery is a long vessel that traversed to the low apical region. OVERALL ASSESSMENT: A 45% to 50% proximal LAD lesion with mild disease in the proximal right coronary artery noted. Given these findings, clearly the diffuse cardiomyopathy is more consistent with a nonischemic cardiomyopathy. This information was shared with Dr. Sandra Vinson, the patient's technical service representative who is taking care of the patient during the hospital course today as well as with Dr. Salinas, the primary hospitalist on the case for today. [id number]/[facility] #: [id number] MTDD
[2017-12-27] MEDS ORDERED: Apixaban* 5 MG TAB PO SCH (09:00)
[2017-12-27] MEDS: Torsemide TAB* 20 MG PO SCH (09:07)
[2017-12-27] MEDS: Aspirin EC TAB* 81 MG TAB.EC PO SCH (09:08)
[2017-12-27] MEDS: Metoprolol Tartrate TAB* 25 MG PO SCH (09:08)
[2017-12-27] MEDS: Potassium Chlor TAB* 20 MEQ TAB.ER PO SCH (09:08)
--- NOTE | 2017-12-27 09:40 | PN ---
Progress Note - Progress Note Date of Service: 12/27/17 Note: Time spent on discharge 40 minutes. face to face time physical exam, instructions with emphasis on daily weights, diet: 20 minutes Documentation and other paperwork: 20 minutes.
--- NOTE | 2017-12-27 14:00 | DS ---
CC: Dr. Kayli Ventura. DISCHARGE SUMMARY: DATE OF ADMISSION: DATE OF DISCHARGE: 12/27/17 HISTORY OF PRESENT ILLNESS: This 62-year-old man presented with shortness of breath. He had had palpitations on and off for 6 months. He was found to be in acute systolic congestive heart failure with an ejection fraction of about 25 %. He was in atrial fibrillation with initially heart rate of 106. He was started on intravenous heparin, beta-joey, KRISTEL inhibitor, Aldactone. He was seen in consultation by Dr. Williamson. He had cardiac catheterization on 12/26/17. This showed nonobstructive coronary artery disease. He was felt to have nonischemic cardiomyopathy. This may be rate-related or due to other underlying condition. He was given intravenous furosemide. He diuresed quite a lot. He lost 31 pounds during the hospital stay. His symptoms essentially resolved. His edema resolved completely. On the day of discharge, his potassium was 4.0, BUN 21, creatinine 0.78. I note his BNP was measured once here, it was 1758. His troponin was 4.87, peaked at 4.94 and came down slowly after that to 3.98 on 01/02, it was not repeated after that. To repeat, his clinical condition was markedly improved at the time of discharge. He was essentially asymptomatic. He remained in atrial fibrillation. He was started on apixaban after the heparin was discontinued. FINAL DIAGNOSES: 1. Atrial fibrillation with rapid ventricular rate. 2. Nonischemic cardiomyopathy. 3. Diabetes, on diet only. 4. Possible pneumonia. DISCHARGE MEDICATIONS: 1. Apixaban 5 mg b.i.d. 2. Lisinopril 5 mg at bedtime. 3. Metoprolol tartrate 12.5 mg every 12 hours. 4. Potassium chloride 20 mEq daily. 5. Torsemide 20 mg daily. 6. Eplerenone 25 mg daily. 7. Doxycycline 100 mg b.i.d. for 8 doses. 8. Aspirin 81 mg daily. [id number]/[facility] #: [id number] [facility]
[2017-12-27] MEDS ORDERED: DOXYcycline CAP(*) 100 MG PO SCH (21:00)
== END 2017-12-27 11:08 | disposition home or self-care (01) | DRG 286 ==
LOC: ED 13:44 → ICU 15:53 → MEDTELE 12-23 08:24
PROVIDERS: ADMIT Internal Medicine; ATTEND Internal Medicine
PROC: B2111ZZ Fluoroscopy of Multiple Coronary Arteries using Low Osmolar Contrast (ICD-10-PCS; principal; 2017-12-26 13:30)
DX: I11.0 Hypertensive heart disease with heart failure (principal); J18.9 Pneumonia, unspecified organism; I50.23 Acute on chronic systolic (congestive) heart failure; I42.8 Other cardiomyopathies; I25.10 Atherosclerotic heart disease of native coronary artery without angina pectoris; E11.65 Type 2 diabetes mellitus with hyperglycemia; R14.0 Abdominal distension (gaseous); E78.5 Hyperlipidemia, unspecified; R74.0 Nonspecific elevation of levels of transaminase and lactic acid dehydrogenase [LDH]; I48.2 Chronic atrial fibrillation; Z79.01 Long term (current) use of anticoagulants; Z79.82 Long term (current) use of aspirin; Z91.14 Patient's other noncompliance with medication regimen; Z88.8 Allergy status to other drugs, medicaments and biological substances; Z82.49 Family history of ischemic heart disease and other diseases of the circulatory system; Z80.9 Family history of malignant neoplasm, unspecified
CPT/HCPCS: 36415; 71045; 80048; 80053; 80061; 83036; 83605; 83735; 83880; 84484; 85025; 85610; 85730; 87641; 87899; 93005; 93306; 93454; 99285; A9270-GY; C1887; J0696; J1644; J1940; J2250; J3010; J3475